=== PATIENT | female | born 1990 | race Caucasian/White ===

== ENCOUNTER → 2016-07-09 | Outpatient (CLI) | payer OTHER ==
--- NOTE | 2016-07-09 14:44 | US ---
ULTRASOUND EXAMINATION OF the left lower extremity WITH DOPPLER HISTORY: History of venous thrombus FINDINGS: Examination of the left leg was performed from the groin to the calf region. All visualized segment s including common femoral, proximal greater saphenous, superficial femoral, popliteal and calf vein s appear patent with good compressibility and augmentation. There is no evidence of deep vein throm bosis. IMPRESSION: No evidence of a DVT.
== END ==
LOC: MW.CHFP 13:46
PROVIDERS: ATTEND Physician Assistant
DX: M79.652 Pain in left thigh (principal); Z87.59 Personal history of other complications of pregnancy, childbirth and the puerperium; Z86.718 Personal history of other venous thrombosis and embolism
CPT/HCPCS: 93971-26-LT; 93971-LT

== ENCOUNTER → 2016-07-10 | Outpatient (CLI) | payer OTHER | LOC: MW.CHOBGYN 14:48 | PROVIDERS: ATTEND Obstetrics & Gynecology | DX: Z34.90 Encounter for supervision of normal pregnancy, unspecified, unspecified trimester (principal) | CPT/HCPCS: 81003 ==